=== PATIENT | female | born 1995 ===

== ENCOUNTER → 2021-11-20 16:53 | Outpatient (CLI) | payer BC, SELFPAY ==
[2021-11-20 18:40] LABS: Add Manual Diff / Slide Review NO; Basophils Absolute Auto 0 /uL (0-100); Basophils Percent Auto 0.3 % (0-2); Eosinophils Absolute Auto 0 /uL (0-450); Eosinophils Percent Auto 0.7 % (2-4); Hematocrit 34.9 % (36-46); Hemoglobin 12.3 g/dL (12.0-16.0); Lymphocytes Absolute Auto 1300 /uL (1100-4500); Lymphocytes Percent Auto 20.7 % (25-40); Mean Corpuscular HGB Conc 35.3 % (30-36); Mean Corpuscular Volume 90.8 fL (80-100); Monocytes Absolute Auto 700 /uL (0-900); Monocytes Percent Auto 11.2 % (3-14); Neutrophils Absolute Auto 4200 /uL (1500-7000); Neutrophils Percent Auto 67.1 % (50-75); Platelet Count 226 X10^3/uL (150-400); Red Blood Cell Count 3.84 X10^6/uL (4.0-5.2); Red Cell Distribution Width 12.9 % (11.6-14.8); White Blood Cell Count 6.3 X10^3/uL (4.5-11.0)
[2021-11-20 19:36] LABS: Hepatitis B Surface Antigen NEGATIVE s/c (NEGATIVE); Rubella Antibody IgG 8.2 IU/mL (>15)
[2021-11-20 19:41] LABS: Specimen Label KIT TEST
[2021-11-21 06:38] LABS: RPR Screen Non Reactive (Non Reactive)
== END ==
PROVIDERS: Referring Provider Obstetrics & Gynecology; Visit Provider Obstetrics & Gynecology
DX: Z34.81 Encounter for supervision of other normal pregnancy, first trimester (principal); Z34.00 Encounter for supervision of normal first pregnancy, unspecified trimester
CPT/HCPCS: 36415; 80055

== ENCOUNTER → 2021-12-26 15:42 | Outpatient (CLI) | payer BC, SELFPAY ==
[2021-12-26 18:14] LABS: Appearance Urine UA SL CLOUDY; Bilirubin Urine UA NEGATIVE (NEGATIVE); Color Urine UA YELLOW; Glucose Urine UA NEGATIVE (Negative); Ketones Urine UA NEGATIVE (NEGATIVE); Leukocyte Esterase Urine UA TRACE (NEGATIVE); Nitrite Urine UA NEGATIVE (Negative); Occult Blood Urine UA NEGATIVE (Negative); Protein Urine UA NEGATIVE (Negative); Urobilinogen Urine UA 0.2 E.U./dL (0.2)
[2021-12-26 18:47] LABS: Bacteria Urine Few (2-10); RBC Urine None Seen (0-5/HPF); Squamous Epithelial Cell Urine 10-30 /HPF (0-5/HPF); WBC Urine 1-5/HPF (0-5/HPF)
[2021-12-26 19:22] LABS: HIV 1 & 2 Ab/Ag 4th Gen Combo NEGATIVE (NEGATIVE); Hep C Virus Ab w/Reflex Quant NEGATIVE s/c (NEGATIVE)
[2021-12-28 12:31] LABS: Varicella IgG Antibody 2023 index (Immune >165)
[2021-12-30 20:39] LABS: AFP Value 48.5 ng/mL (.); Gest Age on Col Date 18.9 weeks (.); Gestational Age Ultrasound (.); Insulin Dep Diabetes No (.); OSBR Risk 1IN 10000 (.); Results Report (.); Test Results *Screen Negative* (.)
== END ==
PROVIDERS: PCP Family Medicine; Referring Provider Obstetrics & Gynecology; Visit Provider Obstetrics & Gynecology
DX: Z34.02 Encounter for supervision of normal first pregnancy, second trimester (principal); Z3A.17 17 weeks gestation of pregnancy
CPT/HCPCS: 36415; 81003; 81015; 82105; 86787; 86803; 86850; 86900; 86901; 87086; 87389

== ENCOUNTER → 2022-01-14 07:43 | Outpatient (CLI) | payer BC, SELFPAY ==
--- NOTE | 2022-01-14 07:44 | DI.US.S_ITS ---
PROCEDURE: US OB >= 14 WEEKS FETUS INDICATIONS: ANATOMY SCAN OUTSIDE/PRIOR DATING DATA: Last menstrual period (LMP): 08/21/2021. LMP-based estimated date of delivery (RADHA): 05/28/2022. First dating scan (date and location): 10/21/2021. Estimated date of delivery (RADHA) from first dating scan: 05/27/2022. The calculations are made using the ultrasound RADHA of 05/27/2022. TECHNIQUE: Real-time scanning was performed of the fetus, with image documentation and biometric measurements. COMPARISON: [facility], , US OB <= 14 WEEKS FETUS, 11/20/2021, 16:33. FINDINGS: General: A single living intrauterine gestation is present. Presentation: Vertex. Placenta: Placental position is anterior, without previa. Amniotic fluid index: 12.3 cm, normal range is 5-24 cm. Single deepest vertical pocket is 3.7 cm. heart rate: 145 beats per minute. Maternal cervical canal: 5 cm long. Normal lower limit is 2.5 cm. biometrics: Biparietal diameter: 5 cm, 21 weeks 1 day Head circumference: 18.2 cm, 20 weeks 4 days Abdominal circumference: 16.6 cm, 21 weeks 3 days Femur length: 3.5 cm, 21 weeks 0 days Clinically estimated gestational age: 21 weeks 0 days Composite gestational age from present scan: 21 weeks 0 days Estimated weight and percentile: 405 g, 55th percentile Anatomic survey: Neuro: Ventricles are non-dilated at less than 10 mm. Cisterna magna is normal at 3-11 mm. Cerebellum is normal in size and morphology. Nuchal skin fold: Normal at less than 6 mm between 14-21 weeks gestational age. Face: Nose and lips, facial profile are normal. Spine: No evidence for spina bifida. Heart: 4-chambered heart is present, with normal ventricular outflow tracts. Diaphragm: Diaphragm is intact. Stomach: Left-sided stomach is present. Kidneys: No hydronephrosis. Normal is less than 5 mm in 2nd trimester, less than 7 mm in 3rd trimester. Cord: 3-vessel cord has orthotopic insertion. Bladder: Normal in size. Extremities: All 4 extremities identified. IMPRESSION: 1. [place] living intrauterine at 21 weeks 0 days based on today's ultrasound. Fetus is in the 55th percentile for weight. 2. Normal placenta and amniotic fluid. 3. Normal and complete anatomic survey. We strive to produce accurate, complete, and clear reports of imaging services. To assist us in improving patient care, this report was composed using standard report templates and voice recognition software. Therefore, it may contain abnormal punctuation, insertions and/or omissions. Occasional wrong-word or sound-alike substitutions may occur. Though we review the report and make efforts to correct it, we do recommend that the report be read carefully in proper context to recognize any text inaccuracies. Dictated by: Charles Burnett M.D. on 01/14/2022 at 9:53 Approved by: Charles Burnett M.D. on 01/14/2022 at 9:57
== END ==
PROVIDERS: PCP Family Medicine; Referring Provider Obstetrics & Gynecology; Visit Provider Obstetrics & Gynecology
DX: Z34.02 Encounter for supervision of normal first pregnancy, second trimester (principal); Z3A.21 21 weeks gestation of pregnancy
CPT/HCPCS: 76811

== ENCOUNTER → 2022-02-11 11:01 | Outpatient (CLI) | payer BC, SELFPAY ==
[2022-02-11 12:36] LABS: Hematocrit 34.7 % (36-46); Hemoglobin 11.8 g/dL (12.0-16.0)
[2022-02-11 12:59] LABS: GTT (PREG) 1 Hour PP 50gm Dose 128 mg/dL (76-139)
== END ==
PROVIDERS: PCP Family Medicine; Referring Provider Obstetrics & Gynecology; Visit Provider Obstetrics & Gynecology
DX: Z34.02 Encounter for supervision of normal first pregnancy, second trimester (principal); Z3A.26 26 weeks gestation of pregnancy
CPT/HCPCS: 36415; 82950; 85014; 85018

== ENCOUNTER → 2022-05-05 09:02 | Outpatient (CLI) | payer BC, SELFPAY ==
[2022-05-06 16:26] LABS: Strep Grp B PCR NEG for Grp B Strep
== END ==
PROVIDERS: PCP Family Medicine; Visit Provider Obstetrics & Gynecology
DX: Z34.03 Encounter for supervision of normal first pregnancy, third trimester (principal); Z3A.36 36 weeks gestation of pregnancy
CPT/HCPCS: 87653

== ENCOUNTER 2022-05-05 17:24 | Outpatient (CLI) | payer OTHER, SELFPAY ==
--- NOTE | 2022-05-05 18:13 | PM.OBTRLD ---
Visit Information Visit Information Date of evaluation: 05/05/22 Primary OB Provider: Tequila Randle Reason for Evaluation: Yes non-stress test Comments/Additional reasons for admission: 27yo at 36w5d here for NST for Raynaud's syndrome. Pt denies any contractions, LOF, vaginal bleeding. She is feeling her baby move regularly. [facility] Medical History (Updated 11/03/21 @ 20:37 by Tequila Randle MD) Anxiety (~2016) Depression Raynaud phenomenon (~2006) Surgical History (System 10/24/21 @ 07:50 by Lady Claire Sears) Anesthesia History of surgery (~2016) History of third molar tooth extraction (~2011) Family History (System 10/24/21 @ 07:50 by Lady Claire Sears) Grandmother Diabetes mellitus Hypertension Social History (System 10/24/21 @ 07:50 by Lady Claire Sears) marital status: number of children: 0 household members: spouse lives independently: Yes housing: house pets and animals: Yes (Aquatic animals) education level: college occupational status: employed current occupational exposures/hazards: Yes (fumes but wears mask and gloves) special jacquelyn needs: No seatbelt use: always water heater temp set < 120 deg: Yes working smoke detector in home: Yes fire extinguisher in home: Yes carbon monox detector in home: Yes firearms in home: No do you feel safe at home: Yes Smoking Status: Never smoker second hand exposure: No alcohol intake: former substance use type: 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 NST reactive. Pt with contractions on monitoring, however not feeling them. Stable for d/c home. OB Disposition: home
== END 2022-05-05 18:15 | disposition home or self-care (01) ==
LOC: OB 05-14 11:38
PROVIDERS: PCP Family Medicine; Referring Provider Obstetrics & Gynecology; Visit Provider Obstetrics & Gynecology
DX: O26.893 Other specified pregnancy related conditions, third trimester (principal); I73.00 Raynaud's syndrome without gangrene; Z3A.36 36 weeks gestation of pregnancy; Z34.03 Encounter for supervision of normal first pregnancy, third trimester
CPT/HCPCS: 59025; 87653; G0378; G0379

== ENCOUNTER → 2022-05-11 10:17 | Outpatient (CLI) | payer OTHER, SELFPAY | PROVIDERS: PCP Family Medicine; Visit Provider Physician Assistant Medical | DX: R35.0 Frequency of micturition (principal); Z3A.37 37 weeks gestation of pregnancy | CPT/HCPCS: 87086 ==

== ENCOUNTER 2022-05-24 12:28 | Inpatient (IN) | payer OTHER, SELFPAY ==
[2022-05-24 14:35] LABS: COVID19 -Nasal RAPID Negative (Negative)
[2022-05-24 15:15] LABS: Add Manual Diff / Slide Review NO; Basophils Absolute Auto 0 /uL (0-100); Basophils Percent Auto 0.3 % (0-2); Eosinophils Absolute Auto 0 /uL (0-450); Eosinophils Percent Auto 0.4 % (2-4); Hematocrit 35.8 % (36-46); Hemoglobin 12.2 g/dL (12.0-16.0); Lymphocytes Absolute Auto 1100 /uL (1100-4500); Lymphocytes Percent Auto 9.6 % (25-40); Mean Corpuscular HGB Conc 34.1 % (30-36); Mean Corpuscular Hemoglobin 31.4 PG (26-34); Mean Corpuscular Volume 92.3 fL (80-100); Monocytes Absolute Auto 800 /uL (0-900); Monocytes Percent Auto 6.9 % (3-14); Neutrophils Absolute Auto 9100 /uL (1500-7000); Neutrophils Percent Auto 82.8 % (50-75); Platelet Count 238 X10^3/uL (150-400); Red Blood Cell Count 3.88 X10^6/uL (4.0-5.2); Red Cell Distribution Width 13.1 % (11.6-14.8)
--- NOTE | 2022-05-24 17:37 | P.HPOB_ITS ---
OB HPI Date/Time Date of admission: 05/24/22 Date Patient Seen: 05/24/22 Time Patient Seen: 16:42 History of Present Condition Chief complaint: obs RADHA Calculator Estimated Delivery Date Method Current WG Current Estimate 05/28/22 LMP (Uncertain) 39w 3d Other Estimates 05/27/22 Ultrasound #1 39w 4d Estimated Gestational Age (weeks): 39+3 : 1 Para: 0 Narrative: Patient is a 27-year-old 1 para 0 who presented to Labor and delivery with bloody vaginal discharge and some contractions. No leakage of fluid. care: good care, initiated at week # (8), number of visits (11) and pounds weight gain (48) Dating criteria OB: LMP confirmed by 1st trimester US Ultrasounds: normal 1st trimester US and normal mid trimester US Obstetrical complications: none Medical complications OB: immunologic (Raynaud's) Preadmission Labs Last OB Lab Results: Blood Type O Positive 12/26/21 15:48 Antibody Screen Negative 12/26/21 15:48 Hematocrit 35.8 % (36-46) L 05/24/22 13:45 Hemoglobin 12.2 g/dL (12.0-16.0) 05/24/22 13:45 Hepatitis B Surface Antigen Negative s/c (NEGATIVE) 11/20/21 17 :45 Hepatitis C Antibody Negative s/c (NEGATIVE) 12/26/21 15:48 Rubella Antibody 8.2 IU/mL (>15) L 11/20/21 17:45 Varicella-Zoster IgG Antibody 2023 index (Immune >165) 12/26/21 15:48 Glucose 1 Hour 128 mg/dL (76-139) 02/11/22 11:14 Group B Streptococcus (PCR) Neg for grp b strep 05/05/22 09:02 -: Chlamydia screen: negative, Gonorrhea screen: negative and Urine: negative -: PAP smear: Normal Genetic Screens: Cell-free DNA: Normal and Alpha-fetoprotein: Normal External Labs -: Urine: negative Evaluation Evaluation Baseline heart rate: 140 Variability: Moderate (11-25) monitor accelerations: Present Monitor Decelerations: Absent Contraction Frequency (minutes): 3 Uterine Contraction Intensity: Moderate Status: Category l Dilation (cm): 7 Effacement (%): 100 station: -1 [facility] Medical History (Updated 11/03/21 @ 20:37 by Tequila Randle MD) Anxiety (~2016) Depression Raynaud phenomenon (~2006) Surgical History (System 10/24/21 @ 07:50 by Lady Claire Sears) Anesthesia History of surgery (~2016) History of third molar tooth extraction (~2011) Family History (System 10/24/21 @ 07:50 by Lady Claire Sears) Grandmother Diabetes mellitus Hypertension Social History (System 10/24/21 @ 07:50 by Lady Claire Sears) marital status: number of children: 0 household members: spouse lives independently: Yes housing: house pets and animals: Yes (Aquatic animals) education level: college occupational status: employed current occupational exposures/hazards: Yes (fumes but wears mask and gloves) special jacquelyn needs: No seatbelt use: always water heater temp set < 120 deg: Yes working smoke detector in home: Yes fire extinguisher in home: Yes carbon monox detector in home: Yes firearms in home: No do you feel safe at home: Yes Smoking Status: Never smoker second hand exposure: No alcohol intake: former substance use type: former substance user and marijuana during the past year weight has: decreased > 10 lbs well-balanced diet: daily or most days daily servings fruits/ve-4 caffeine: Yes (200mg daily) eating out: 1-3 times/week Type(s) of exercise: walking Meds Home Medications and Allergies Home Medications Medication Instructions Recorded Confirmed Type prenat.vits,barbara,dmc-[id number] 1 tab PO DAILY 10/16/21 05/11/22 History Allergies Allergy/AdvReac Type Severity Reaction Status Date / Time No Known Drug Allergies Allergy Unverified 05/11/22 09:23 OB Exam Narrative Exam Narrative: Generally: Patient lying in bed, in moderate distress secondary to contractions Lungs: Clear to auscultation bilaterally Cardiovascular: Regular rate and rhythm Fundal height: 39 cm Estimated weight: 7 1/2 to 8 lbs Extremities: Trace edema Objective Labs Result Diagrams: 05/24/22 13:45 Labs: Laboratory Results - last 24 hr 05/24/22 05/24/22 13:45 14:33 WBC 11.0 RBC 3.88 L Hgb 12.2 Hct 35.8 L MCV 92.3 MCH 31.4 MCHC 34.1 RDW 13.1 Plt Count 238 Neut % (Auto) 82.8 H Lymph % (Auto) 9.6 L [place] % (Auto) 6.9 Eos % (Auto) 0.4 L Baso % (Auto) 0.3 Neut # (Auto) 9100 H Lymph # (Auto) 1100 [place] # (Auto) 800 Eos # (Auto) 0 Baso # (Auto) 0 SARS-CoV-2 (PCR) Negative Assessment and Plan Assessment and Plan Assessment and Plan narrative: Assessment: 27-year-old 1 para 0 at 39-,3/7 weeks gestation in active labor Plan: Artificial rupture membranes performed with slightly bloody discharge from the vagina, clear amniotic fluid Epidural as necessary Expected management to spontaneous vaginal delivery Time Spent with Patient Total time spent with greater than 50% in coordination of care (as documented) at patient's floor/unit and/or counseling patient:: 15-24 minutes
[2022-05-24] MEDS: OXYTOCIN PREMIX 30 UNIT/500 ML PLAST..BAG IV (19:29)
--- NOTE | 2022-05-24 19:48 | PM.OBPNLAB ---
Date/Time Date Patient Seen: 05/24/22 Time Patient Seen: 18:45 Pain Control Pain control: epidural (Some pain on the left) Pelvic Exam Dilation (cm): 9 Effacement (%): 100 station: -1 Amniotic membrane status: Ruptured Contractions Contractions on admission: regular Monitor mode: External Contraction duration (min): 3 Contraction intensity: Moderate Status status: Category l Heart Rate Baseline: 140 Monitor Accelerations: Present Monitor Decelerations: Absent Monitor Variability: Moderate Assessment and Plan Assessment: active labor Comments: Right side to get rid of remaining cervix Begin Pitocin augmentation Expectant management to
--- NOTE | 2022-05-24 20:23 | PM.OBPNLAB ---
Date/Time Date Patient Seen: 05/24/22 Time Patient Seen: 20:23 Pain Control Pain control: epidural (Very comfortable) Pelvic Exam Dilation (cm): 10 Effacement (%): 100 station: +1 Amniotic membrane status: Ruptured Contractions Monitor mode: External Pitocin rate (mU/min): 1 Contraction frequency (min): 3 Contraction duration (min): 1 Contraction pattern: Regular Contraction intensity: Strong/Firm Status status: Category l Heart Rate Baseline: 140 Monitor Accelerations: Present Monitor Decelerations: Absent Monitor Variability: Moderate Assessment and Plan Assessment: active labor Comments: Begin pushing Expectant management to
--- NOTE | 2022-05-24 22:20 | P.PCNOB_ITS ---
Events: Labor Augmentation Labor & Delivery Delivery date: 05/24/22 Intrapartal Events: Bleeding and Extended Tachycardia Cervical ripening method: none Induction method: none Delivery augmentation: rupture of membranes and pitocin Delivery monitor: external FHT and external uterine Route of delivery: vacuum extraction Indication for instrumentation: nonreassuring FHR tracing ( tachycardia into the 200s) Episiotomy description: None L&D Laceration Description: Perineal - 1st Degree and Vaginal - 1st Degree Delivery repair: chromic Estimated blood loss (mL): 200 Anesthesia Type: Epidural Complications: None Narrative: Patient was complete and pushed for 1-1/2 hours. Due to extended ta chycardia, the vacuum was applied. With 2 contractions the vertex was brought to the perineum. One pop-off. The vacuum was removed. The patient then pushed with 3 more contractions and the vertex delivered in the SUNITA presentation over an intact perineum at 9:45 p.m.. No nuchal cord. The nose and mouth were suctioned bloody fluid. The remainder of the body was delivered and placed on mom's abdomen. There was a large gush of bloody fluid after the baby. The cord was double clamped and cut after it stopped pulsing. Cord bloods were obtained. Pitocin was given in the IV fluids. The placenta delivered intact with a three-vessel cord at 9:56 p.m.. There was a small clot at the edge of the placenta. The fundus was massaged to firm. The bladder was emptied with a red rubber catheter. A first-degree laceration was repaired with 2-0 chromic in the usual fashion. Hemostasis was achieved. Apgars 8 at 1 minute and 9 at 5 minutes. Epidural analgesia. . Mom and infant stable to recovery. [place] Baby 1: Infant gender: Female Presentation: vertex Position: Left Occiput Anterior Placenta delivery description: Spontaneous Cord Vessel Description: 3 Vessels and Clamped/Cut (After the cord stopped pulsing) score (1 min): 8 score (5 min): 9 weight: 8 lb 10 oz Plan for aftercare: Routine care
[2022-05-24] MEDS: OXYTOCIN PREMIX 30 UNIT/500 ML PLAST..BAG 250 UNIT IV (23:15)
[2022-05-24] MEDS: miSOPROStoL 200 MCG TABLET 1000 MCG PR (23:41)
[2022-05-25] MEDS: IBUPROFEN 600 MG TABLET PO ×3 (00:27→19:17)
[2022-05-25] MEDS: ACETAMINOPHEN 325 MG TABLET 650 MG PO ×3 (00:27→19:17)
[2022-05-25 06:10] LABS: Hematocrit 27.8 % (36-46); Hemoglobin 9.6 g/dL (12.0-16.0)
[2022-05-25] MEDS: DOCUSATE 100 MG CAPSULE PO (08:52)
[2022-05-25] MEDS: DERMOPLAST SPRAY 20% 60 ML 1 SPRAY TOP (08:52)
--- NOTE | 2022-05-25 18:37 | P.PNOB_ITS ---
Subjective - OB Subjective Patient comments: no complaints [place] baby status: doing well feeding status: exclusively breast feeding Date Patient Seen: 05/25/22 Time Patient Seen: 08:45 Interval history: day 0. Patient did have a fever post vaginal delivery. She had rupt ure membranes for only 5 hours. She did have likely a partial abruption and her hematocrit this morning is 27. Patient is ambulatory. She denies headaches, scotomata, epigastric pain. Exam Vital Signs (past 8 hours): Blood pressure 115/66, pulse 110 temperature 37.6? Narrative Exam Narrative: Patient's abdomen is soft, nontender. Uterus is firm, at U, nontender. Extremities without edema and nontender. Objective Labs Result Diagrams: 05/25/22 05:51 Labs: Laboratory Results - last 24 hr 05/25/22 05:51 Hgb 9.6 L Hct 27.8 L Assessment & Plan Plan plan OB: routine care Time Spent With Patient Time: Total time spent is greater than 50% in coordination of care (as documented) at patient's floor/unit and/or counseling patient: Time with patient: less than 15 minutes
[2022-05-25] MEDS: LANOLIN OINT 7 GM 1 APPLIC TOP (19:16)
[2022-05-26 06:24] LABS: Add Manual Diff / Slide Review NO; Basophils Absolute Auto 0 /uL (0-100); Basophils Percent Auto 0.3 % (0-2); Eosinophils Absolute Auto 0 /uL (0-450); Eosinophils Percent Auto 0.5 % (2-4); Hematocrit 27.4 % (36-46); Hemoglobin 9.6 g/dL (12.0-16.0); Lymphocytes Absolute Auto 800 /uL (1100-4500); Lymphocytes Percent Auto 8.3 % (25-40); Mean Corpuscular HGB Conc 35.2 % (30-36); Mean Corpuscular Hemoglobin 32.2 PG (26-34); Mean Corpuscular Volume 91.4 fL (80-100); Monocytes Absolute Auto 700 /uL (0-900); Monocytes Percent Auto 7.1 % (3-14); Neutrophils Absolute Auto 8000 /uL (1500-7000); Neutrophils Percent Auto 83.8 % (50-75); Platelet Count 179 X10^3/uL (150-400); White Blood Cell Count 9.6 X10^3/uL (4.5-11.0)
[2022-05-26] MEDS: IBUPROFEN 600 MG TABLET PO (06:25)
[2022-05-26] MEDS: ACETAMINOPHEN 325 MG TABLET 650 MG PO (06:26)
[2022-05-26] MEDS: PRENATAL VIT,CALC/IRON/FOLIC 1 TABLET 1 TAB PO (09:32)
[2022-05-26] MEDS: DOCUSATE 100 MG CAPSULE PO (09:32)
[2022-05-26] MEDS: MEASLES,MUMPS,RUBELLA VACC/PF 0.5 ML VIAL SUBCUT (09:56)
== END 2022-05-26 10:44 | disposition home or self-care (01) | DRG 807 ==
PROVIDERS: Specialist; Admitting Provider Obstetrics & Gynecology; PCP Family Medicine; Referring Provider Obstetrics & Gynecology; Visit Provider Obstetrics & Gynecology
DX: O67.9 Intrapartum hemorrhage, unspecified (principal); Z37.0 Single live birth; O76 Abnormality in fetal heart rate and rhythm complicating labor and delivery; O70.0 First degree perineal laceration during delivery; Z3A.39 39 weeks gestation of pregnancy; O99.892 Other specified diseases and conditions complicating childbirth; I73.00 Raynaud's syndrome without gangrene; Z20.822 Contact with and (suspected) exposure to COVID-19
CPT/HCPCS: 01967; 36415; 59050; 59400; 85014; 85018; 85025; 86850; 86900; 86901; 87635; C9803; G0379; J2590; S0191

== ENCOUNTER → 2023-11-06 08:54 | Outpatient (CLI) | payer BC, SELFPAY ==
[2023-11-06 10:01] LABS: Add Manual Diff / Slide Review NO; Basophils Absolute Auto 0 /uL (0-100); Basophils Percent Auto 0.8 % (0-2); Eosinophils Absolute Auto 100 /uL (0-450); Eosinophils Percent Auto 1.6 % (2-4); Hematocrit 41.3 % (36-46); Hemoglobin 13.8 g/dL (12.0-16.0); Lymphocytes Absolute Auto 1500 /uL (1100-4500); Mean Corpuscular HGB Conc 33.3 % (30-36); Mean Corpuscular Hemoglobin 30.7 PG (26-34); Mean Corpuscular Volume 92.2 fL (80-100); Monocytes Absolute Auto 600 /uL (0-900); Monocytes Percent Auto 10.3 % (3-14); Neutrophils Absolute Auto 3300 /uL (1500-7000); Neutrophils Percent Auto 60.3 % (50-75); Platelet Count 245 X10^3/uL (150-400); Red Blood Cell Count 4.48 X10^6/uL (4.0-5.2); Red Cell Distribution Width 12.2 % (11.6-14.8); White Blood Cell Count 5.5 X10^3/uL (4.5-11.0)
[2023-11-06 10:47] LABS: TSH w/ Reflex to FT4 0.39 uIU/mL (0.47-4.68)
[2023-11-06 11:12] LABS: Free T4, Direct Thyroxine 1.01 ng/dL (0.78-2.19)
== END ==
PROVIDERS: PCP Family Medicine; Referring Provider Family Medicine; Visit Provider Family Medicine
DX: R45.86 Emotional lability (principal)
CPT/HCPCS: 36415; 84439; 84443; 85025